=== PATIENT | male | born 2000 | race Two or more races ===

== ENCOUNTER 2023-08-31 10:57 | Outpatient (CLI) | payer OTHER ==
[2023-08-31 11:57] LABS: HEMATOCRIT 39.2 % (39.0-48.0); HEMOGLOBIN 13.6 g/dL (13-16.00); MEAN CELL VOLUME 85.7 fL (80.0-100.00); MEAN CORPUSCULAR HEMOGLOBIN 29.7 pg (27.00-32.0); MEAN CORPUSCULAR HGB CONC 34.6 g/dl (32.0-36.0); PLATELET COUNT 273 K/uL (150-450); RED BLOOD COUNT 4.57 M/uL (4.00-6.00); RED CELL DISTRIBUTION WIDTH 13.2 % (11.5-14.5)
[2023-08-31 12:12] LABS: URINE APPEARANCE Clear; URINE BILIRRUBIN Negative (NEGATIVE); URINE BLOOD NHT; URINE COLOR Yellow; URINE GLUCOSE Negative (NEGATIVE); URINE LEUKOCYTE Negative; URINE NITRATE Negative; URINE PROTEIN Trace (NEGATIVE)
[2023-08-31 12:16] LABS: URINE BACTERIA 23.9 uL (0.0-1933); URINE EPITHELIAL CELLS 4.1 uL (0.0-38.8); URINE RBC 21.4 uL (0.0-20.8); URINE WBC 5.7 uL (0.0-23.2)
[2023-08-31 12:29] LABS: INR 1.04; PARTIAL THROMBOPLASTIN TIME 31.4 SECONDS (22.0-34.0); PROTHROMBIN TIME 10.9 SECONDS (9.0-11.5)
[2023-08-31 12:50] LABS: CALCIUM 9.4 mg/dL (8.5-10.1); CREATININE SERUM 0.8 mg/dL (0.70-1.30); GFR 122.03; POTASSIUM 4.32 mEq/L (3.5-5.1)
[2023-09-02] MEDS ORDERED: KEPPRA500 MG PO (09:09)
[2023-09-02] MEDS ORDERED: DUI500 PO (17:17)
[2023-09-02] MEDS ORDERED: TRAM1TAB98 PO (17:17)
== END 2023-08-31 11:09 | disposition home or self-care (01) ==
LOC: LAB 10:57
PROVIDERS: ATTEND Orthopaedic Surgery Sports Medicine
DX: D68.9 Coagulation defect, unspecified (principal)